=== PATIENT | female | born 1940 | race African-American/Black ===

== ENCOUNTER 2019-01-07 18:16 | Inpatient (IN) | payer MEDICARE, OTHER ==
[~2019-01-07] VITALS: Ht 172.7 cm; Wt 111.1 kg
[2019-01-07] MEDS ORDERED: TRIBENZOR 40-11 EAC1 ORAL (18:24)
[2019-01-07] MEDS ORDERED: BYSTOLIC20 MG ORAL (18:24)
[2019-01-07] MEDS ORDERED: ZETIA10 MG ORAL (18:24)
[2019-01-07] MEDS ORDERED: METFORMIN ER G500 MG PO (18:24)
[2019-01-07] MEDS ORDERED: ALLOPURINOL300 M1 ORAL (18:24)
[2019-01-07] MEDS ORDERED: LEVOTHYROXINE175 MCG ORAL (18:24)
[2019-01-07] MEDS ORDERED: FUROSEMIDE40 MG/5 ML ORAL (18:24)
--- NOTE | 2019-01-07 18:25 | NUR ---
ED Nurse Note: patient was brought by ambulance, AAO x 3, per patient's daughter she was not answering phone for 3 days, daughter called 911 and they broke down her door. Patient was laying down on the floor for 2 days. per patient she was "so sleepy to get up from the floor" No pain, no lacerations, no bruising noted. skin is dry intact. VSS at this time. will continue to monitor.
[2019-01-07 18:27] VITALS: BP 145/86
[2019-01-07 18:50] LABS: APPEARANCE,URINE CLOUDY; BILIRUBIN, URINE NEGATIVE (NEGATIVE); GLUCOSE, URINE (UA) NEGATIVE (NEGATIVE); KETONES,URINE 2+ (NEGATIVE); LEUKOCYTE ESTERASE ,URINE 3+ (NEGATIVE); NITRITE,URINE POSITIVE (NEGATIVE); PH,URINE 5 (4.5-8.0); PROTEIN,URINE 2+ (NEGATIVE); UROBILINOGEN,URINE 4 MG/DL (0.0-1.0)
[2019-01-07 18:50] LABS: HEMATOCRIT 43.6 % (37.0-47.0); HEMOGLOBIN 14.7 G/DL (12.0-16.0); LYMPHOCYTES % (AUTO) 13.3 % (20.0-45.0); MEAN CORPUSCULAR VOLUME 92 FL (80-99); MONOCYTES % (AUTO) 8.4 % (1.0-10.0); NEUTROPHILS % (AUTO) 77.2 % (45.0-75.0); PLATELET COUNT 202 K/UL (150-450); RED BLOOD COUNT 4.74 M/UL (4.20-5.40); RED CELL DISTRIBUTION WIDTH 12.5 % (11.6-14.8); WHITE BLOOD COUNT 7.8 K/UL (4.8-10.8)
--- NOTE | 2019-01-07 18:52 | Emergency Room Report ---
History of Present Illness General Chief Complaint: Multiple Trauma/Fall Source: Patient, Family Member, EMS (Deangelo Julien MD) Present Illness HPI The patient wasn't answering her phone. Family member went today. She was unable to ambulate. She states this is happened one time before. She denies any pain. Paramedics were summoned. She had a tachycardia. Accu-Chek was 260. MLAPPS was negative. The patient was seen by her doctor on Tuesday without any identified medical problems. History of hypertension and diabetes. She's also taking a blood thinner. H/O hypothyroidism She has chronic edema of LE bilaterally. Denies pain in legs. 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[employer] Reviewed Nursing Documentation: PMH: Agreed; PSxH: Agreed (Deangelo Julien MD) Nursing Documentation-PMH Hx Cardiac Problems: Yes - HYPOTHYROIDISM Hx Hypertension: Yes (Deangelo Julien MD) Review of Systems All Other Systems: negative except mentioned in HPI (Deangelo Julien MD) Physical Exam Vital Signs Date Time Temp Pulse Resp B/P (MAP) Pulse Ox O2 Delivery O2 Flow Rate FiO2 01/07/19 18:12 126 20 135/90 93 Room Air 01/07/19 18:27 98.0 Sp02 EP Interpretation: reviewed, normal General Appearance: well appearing, no apparent distress, GCS 15 Head: normocephalic, atraumatic Eyes: bilateral eye normal inspection, bilateral eye PERRL ENT: moist mucus membranes - plates Neck: supple Respiratory: lungs clear, normal breath sounds Cardiovascular #1: tachycardia, edema - 2+ pitting bilat Cardiovascular #2: 2+ radial (R) Gastrointestinal: normal inspection, normal bowel sounds, non tender, no mass, non-distended Genitourinary: other - UTI smell Musculoskeletal: back normal, normal range of motion, pelvis stable Neurologic: alert, oriented x3, DTRs symmetric, sensory intact, motor weakness - diffuse, slight extinction R hand and drift, minimal facial assymmetry with R weakness Psychiatric: mood/affect normal Skin: warm/dry (Deangelo Julien MD) Medical Decision Making Diagnostic Impression: Primary Impression: Fall Qualified Codes: W19.XXXA - Unspecified fall, initial encounter Additional Impressions: UTI (urinary tract infection) Qualified Codes: N39.0 - Urinary tract infection, site not specified Subacute left parietal lobe infarct Rhabdomyolysis Qualified Codes: M62.82 - Rhabdomyolysis ER Course Patient presents with denies weakness and being down for 3 days. [place] includes acute myocardial infarction, UTI, sepsis, rhabdomyolysis, acute renal failure, hypothyroidism amongst others. Evaluation will be with EKG, CT the head, chest x-ray and labs including blood cultures and lactate. The patient will receive IV hydration and may need antibiotics. The patient is placed on a hall monitor. EKG without injury. CXR atelectasis L base. CT possible subacute infarct L parietal lobe. UA with pyuria. Elevated CK. Antibiotics begun for UTI. Neurologic exam unchanged. Probable CVA occurred 3 days ago. No tPA indicated. Discussed with Dr. Ventura, however awaiting insurance confirmation. Admit telemetry. Signed out to Dr. Murphy. Laboratory Tests Test 01/07/19 18:25 01/07/19 18:35 White Blood Count 7.8 K/UL (4.8-10.8) Red Blood Count 4.74 M/UL (4.20-5.40) Hemoglobin 14.7 G/DL (12.0-16.0) Hematocrit 43.6 % (37.0-47.0) Mean Corpuscular Volume 92 FL (80-99) Mean Corpuscular Hemoglobin 31.0 PG (27.0-31.0) Mean Corpuscular Hemoglobin Concent 33.7 G/DL (32.0-36.0) Red Cell Distribution Width 12.5 % (11.6-14.8) Platelet Count 202 K/UL (150-450) Mean Platelet Volume 7.1 FL (6.5-10.1) Neutrophils (%) (Auto) 77.2 % (45.0-75.0) H Lymphocytes (%) (Auto) 13.3 % (20.0-45.0) L Monocytes (%) (Auto) 8.4 % (1.0-10.0) Eosinophils (%) (Auto) 0.0 % (0.0-3.0) Basophils (%) (Auto) 1.0 % (0.0-2.0) Prothrombin Time 11.5 SEC (9.30-11.50) Prothrombin Time INR 1.1 (0.9-1.1) PTT 30 SEC (23-33) Sodium Level 137 MMOL/L (136-145) Potassium Level 3.3 MMOL/L (3.5-5.1) L Chloride Level 98 MMOL/L (98-107) Carbon Dioxide Level 24 MMOL/L (21-32) Anion Gap 15 mmol/L (5-15) Blood Urea Nitrogen 15 mg/dL (7-18) Creatinine 1.0 MG/DL (0.55-1.30) Estimate Glomerular Filtration Rate mL/min (>60) Glucose Level 235 MG/DL (74-106) H Lactic Acid Level 1.80 mmol/L (0.4-2.0) Calcium Level 10.0 MG/DL (8.5-10.1) Total Bilirubin 0.8 MG/DL (0.2-1.0) Aspartate Amino Transferase (AST) 66 U/L (15-37) H Alanine Aminotransferase (ALT) 26 U/L (12-78) Alkaline Phosphatase 67 U/L (46-116) Total Creatine Kinase 2435 U/L (26-308) H Troponin I 0.000 ng/mL (0.000-0.056) Pro-B-Type Natriuretic Peptide 66 pg/mL (0-125) Total Protein 7.9 G/DL (6.4-8.2) Albumin 3.2 G/DL (3.4-5.0) L Globulin 4.7 g/dL Albumin/Globulin Ratio 0.7 (1.0-2.7) L Thyroid Stimulating Hormone (TSH) 5.378 uiU/mL (0.358-3.740) Urine Color Yellow Urine Appearance Cloudy Urine pH 5 (4.5-8.0) Urine Specific [place] 1.020 (1.005-1.035) Urine Protein 2+ (NEGATIVE) H Urine Glucose (UA) Negative (NEGATIVE) Urine Ketones 2+ (NEGATIVE) H Urine Blood 4+ (NEGATIVE) H Urine Nitrite Positive (NEGATIVE) H Urine Bilirubin Negative (NEGATIVE) Urine Urobilinogen 4 MG/DL (0.0-1.0) H Urine Leukocyte Esterase 3+ (NEGATIVE) H Urine RBC 0-2 /HPF (0 - 2) Urine WBC Tntc /HPF (0 - 2) H Urine Squamous Epithelial Cells Few /LPF (NONE/OCC) Urine Bacteria Many /HPF (NONE) H Urine Opiates Screen Negative (NEGATIVE) Urine Barbiturates Screen Negative (NEGATIVE) Phencyclidine (PCP) Screen Negative (NEGATIVE) Urine Amphetamines Screen Negative (NEGATIVE) Urine Benzodiazepines Screen Negative (NEGATIVE) Urine Cocaine Screen Negative (NEGATIVE) Urine Marijuana (THC) Screen Negative (NEGATIVE) (Deangelo Julien MD) ER Course Patient was admitted to Dr. Ventura by Dr. Julien. Patient has [facility]. This patient hospitalists is Dr. Leroy. I spoke with Dr. Aniceto singh and will switch the admission to his service. Dr. Ventura will be digital media sales consultant. (Handy Murphy MD) EKG Diagnostic Results Rate: tachycardiac Rhythm: NSR ST Segments: no acute changes (Deangelo Julien MD) Rhythm Strip Diag. Results EP Interpretation: yes Rhythm: no PVC's, no ectopy, other - Sinus tachycardia (Deangelo Julien MD) Chest X-Ray Diagnostic Results Chest X-Ray Diagnostic Results : Chest X-Ray Ordered: Yes # of Views/Limited/Complete: 1 View Indication: Other EP Interpretation: Yes Interpretation: no effusion, no pneumothorax, other Impression: Other Electronically Signed by: Electronically signed by Deangelo Julien MD (Deangelo Julien MD) CT/MRI/US Diagnostic Results CT/MRI/US Diagnostic Results : Imaging Test Ordered: head Impression possible subacute L parietal lobe infarct (Note final reading does not mention this.) (Deangelo Julien MD) Last Vital Signs Date Time Temp Pulse Resp B/P (MAP) Pulse Ox O2 Delivery O2 Flow Rate FiO2 01/08/19 00:20 98.0 84 15 125/86 99 Room Air Status: improved (Deangelo Julien MD) Disposition: ADMITTED INPATIENT Condition: Serious Deangelo Julien MD Jan 07, 2019 18:52 Handy Murphy MD Jan 07, 2019 23:41
[2019-01-07 18:53] LABS: COLOR,URINE YELLOW
[2019-01-07 18:59] LABS: INR 1.1 (0.9-1.1)
[2019-01-07 19:01] LABS: ANION GAP 15 mmol/L (5-15); BLOOD UREA NITROGEN 15 mg/dL (7-18); CARBON DIOXIDE 24 MMOL/L (21-32); CHLORIDE 98 MMOL/L (98-107); POTASSIUM 3.3 MMOL/L (3.5-5.1); SODIUM 137 MMOL/L (136-145)
[2019-01-07 19:14] VITALS: BP 138/87
[2019-01-07 19:20] LABS: ALANINE AMINOTRANSFERASE 26 U/L (12-78); ALBUMIN 3.2 G/DL (3.4-5.0); ALBUMIN/GLOBULIN RATIO 0.7 (1.0-2.7); ALKALINE PHOSPHATASE 67 U/L (46-116); ASPARTATE AMINO TRANSFERASE 66 U/L (15-37); BILIRUBIN,TOTAL 0.8 MG/DL (0.2-1.0); CREATINE KINASE 2435 U/L (26-308)
[2019-01-07] MEDS ORDERED: Piperacillin/Tazobactam 3.375 GM in NS 110 ML IVPB ONE (20:00)
[2019-01-07 21:13] VITALS: BP 134/86
--- NOTE | 2019-01-07 22:02 | NUR ---
Face sheet, EKG, CT and US reports and clinicals faxed to [facility] ( Anh) at [phone] as requested. Will wait for [facility] to review and call us back. aware.
--- NOTE | 2019-01-07 22:15 | History and Physical Report ---
DATE OF ADMISSION: 01/07/2019 REASON FOR ADMISSION: 1. Urinary tract infection. 2. Dehydration. 3. Rhabdomyolysis. 4. Being found down. HISTORY OF PRESENT ILLNESS: The patient is a pleasant 78-year-old female with well known hypertension and diabetes mellitus, who had not been answering her phone for approximately two days. Family members went over and called the paramedics. She was found to be hyperglycemic. Per the patient's recall, she says she was not feeling well and had not eating for a few days approximately two in nature and thinks she may have passed out or not fell well to overdose two days when she was woken by the paramedics and as such was brought to the emergency room or discover she did have hyperglycemia and the underlying urinary tract infection with an elevated CPK. ALLERGIES: No known drug allergies. PAST MEDICAL HISTORY: 1. Morbid obesity. 2. Diabetes mellitus. 3. Hypertension. 4. Hypothyroidism. 5. Hyperlipidemia. SOCIAL HISTORY: No tobacco, alcohol, or illicit drug use. PAST SURGICAL HISTORY: None. REVIEW OF SYSTEMS: NEUROLOGICAL: The patient feels tired, weak, and fatigued with a possible presyncopal episode. CARDIOVASCULAR: No chest pain, palpitations, or angina. PULMONARY: No difficulty breathing, productive cough, or sputum. GASTROINTESTINAL: No change in urine or bowel habits. No nausea, vomiting, or diarrhea. ENDOCRINOLOGY: No night sweats, fevers, or chills. LABORATORY DATA: Dated 01/04/2019 - sodium 137, potassium 3.3, and glucose 235. Lactic acid 1.8. CPK 2435. Troponin 0. TSH 5.3. Toxicology screen negative. Positive urine for many bacteria. White cell count 7.8, hemoglobin 14.7, and platelet count 202,000. PHYSICAL EXAMINATION: VITAL SIGNS: Blood pressure 138/87, pulse oximetry 98 on room air, respiratory rate 16, pulse 90, and temperature 98.0. GENERAL: The patient is awake and arousable. Answering questions coherently. Alert all four spheres. HEENT: Extraocular muscles intact. No lymphadenopathy. Oropharyngeal is clear and dry. CARDIOVASCULAR: S1 and S2. No rubs or gallops. PULMONARY: Clear to auscultation bilaterally. No rales, rhonchi or wheezes. ABDOMEN: Nondistended, nontender, and obese. EXTREMITIES: No edema noted. Fair pedal pulses. ASSESSMENT AND PLAN: 1. Rhabdomyolysis secondary to prolonged immobilization on floor with a CPK level approximately 2500. The patient will be aggressively hydrated with normal saline 125 mL/hour have been ordered along with correction of underlying hypokalemia. We will recheck CPK level in the morning. 2. Hypokalemia. The patient will have hypokalemia replaced with 40 mEq p.o. currently 3.3. 3. Sepsis secondary to urinary tract infection. The patient was given Levaquin and Zosyn in the emergency room. We will continue Rocephin on a daily basis. 4. Possible presyncopal to syncopal episode due to hyperglycemia, poorly controlled diabetes. The patient will be started on insulin sliding scale, metformin, and Accu-Cheks with low carbohydrate diet. She will also be aggressively hydrated. The patient is not in diabetic ketoacidosis. 5. Hypertension. Continue home medications. 6. Deep venous thrombosis prophylaxis with Lovenox subcutaneous. 7. Hypothyroidism with elevated TSH. Continue levothyroxine. Errol Mullen MD DR: LESLIE JOB#: [id number] CC:
[2019-01-07 23:27] VITALS: BP 129/89
--- NOTE | 2019-01-07 23:42 | NUR ---
contacted, accepted patient.
--- NOTE | 2019-01-07 23:46 | NUR ---
Spoke with Anh at [facility] and made aware that admitted patient already.
--- NOTE | 2019-01-07 23:48 | NUR ---
patient daughter (vincent) called she was made aware that her mother is being admited.
--- NOTE | 2019-01-08 00:21 | NUR ---
ED Nurse Note: Pt report given to Kelsey RAO, pt vital signs, condition, and status have been reported. pt is stable for transfer.
[2019-01-08 00:50] VITALS: BP 112/64
--- NOTE | 2019-01-08 00:51 | NUR ---
NURSE NOTES: Received pt from MAIRA Foreman. Pt awake, alert, and talkative. Skin intact. Indentation noted in the sacral area but intact. Lung sounds clear. Heart and bowel sounds present. Pt has trace edema in lower extremities. Bed in lowest position. Call light within reach. No signs or symptoms of CVA. Pt stated that she was on the floor for two days. Fall precautions in place. Will continue to monitor.
[2019-01-08 04:00] VITALS: BP 115/67
[2019-01-08] MEDS: NovoLOG Insulin Flexpen SUBQ SCH ×4 (05:58→21:00)
[2019-01-08] MEDS: metFORMIN 500mg tab ORAL SCH ×3 (06:03→17:27)
--- NOTE | 2019-01-08 07:20 | NUR ---
NURSE NOTES: Received patient in bed. A/O x4, eating her breakfast comfortably. IV site is intact, patent, infusing IVF as ordered. VSS, ST 105 noted on the monitor. Call light within reach. Safety measures applied.
[2019-01-08 07:58] LABS: BASOPHILS % (AUTO) 0.7 % (0.0-2.0); EOSINOPHILS % (AUTO) 0.1 % (0.0-3.0); HEMATOCRIT 38.2 % (37.0-47.0); HEMOGLOBIN 12.7 G/DL (12.0-16.0); LYMPHOCYTES % (AUTO) 20.5 % (20.0-45.0); MEAN CORPUSCULAR VOLUME 94 FL (80-99); MONOCYTES % (AUTO) 12.4 % (1.0-10.0); NEUTROPHILS % (AUTO) 66.3 % (45.0-75.0); PLATELET COUNT 182 K/UL (150-450); RED BLOOD COUNT 4.08 M/UL (4.20-5.40); RED CELL DISTRIBUTION WIDTH 12.8 % (11.6-14.8); WHITE BLOOD COUNT 6.9 K/UL (4.8-10.8)
[2019-01-08 08:00] VITALS: BP 119/69
--- NOTE | 2019-01-08 08:05 | NUR ---
HAND-OFF: Report given to MAIRA Guerrier.
[2019-01-08 08:09] LABS: ANION GAP 12 mmol/L (5-15); BLOOD UREA NITROGEN 14 mg/dL (7-18); CALCIUM 9.2 MG/DL (8.5-10.1); CARBON DIOXIDE 25 MMOL/L (21-32); CHLORIDE 103 MMOL/L (98-107); CREATININE 0.9 MG/DL (0.55-1.30); POTASSIUM 3.7 MMOL/L (3.5-5.1); SODIUM 140 MMOL/L (136-145)
--- NOTE | 2019-01-08 08:30 | NUR ---
NURSE NOTES: Patient is a/ox4, wished her daughter Winsome Smith ([phone]) to be updated, gave updates to her daughter.
[2019-01-08 08:32] LABS: CREATINE KINASE 1708 U/L (26-308)
--- NOTE | 2019-01-08 08:55 | Nephrology Progress Note ---
Assessment/Plan Assessment/Plan A/P 1) Rhabdomy- CPK improving down to 1700 - continue IVFs - DC meenu 2) Syncope/Prolonged immobilization - ?? dehydration and hyperglycemia - continue IVfs and ISS - per PCP 3) UTI- on Abx 4) HTN- stable at goal 5) Hypothyroid- on synthroid Subjective Date patient seen: Jan 08, 2019 Time patient seen: 08:52 ROS Limited/Unobtainable: No Allergies: Coded Allergies: No Known Allergies (Unverified , 01/07/19) Subjective Patient more awake and alert today Objective Last 24 Hour Vital Signs Date Time Temp Pulse Resp B/P (MAP) Pulse Ox O2 Delivery O2 Flow Rate FiO2 01/08/19 08:00 98.1 105 18 119/69 (86) 95 01/08/19 04:00 99.0 108 18 115/67 (83) 95 01/08/19 04:00 107 01/08/19 00:52 Room Air 01/08/19 00:50 97.2 116 18 112/64 (80) 97 01/08/19 00:20 98.0 84 15 125/86 99 Room Air 01/07/19 23:27 98.0 87 15 129/89 99 Room Air 01/07/19 21:13 98.0 91 16 134/86 99 Room Air 01/07/19 19:14 98.0 90 16 138/87 98 Room Air 01/07/19 18:27 115 22 Room Air 01/07/19 18:27 98.0 115 22 145/86 98 Room Air 01/07/19 18:12 126 20 135/90 93 Room Air Intake and Output 01/07/19 01/08/19 19:00 07:00 Output Total 400 ml Balance -400 ml Output Urine Total 400 ml Laboratory Tests 01/07/19 18:25: White Blood Count 7.8, Red Blood Count 4.74, Hemoglobin 14.7, Hematocrit 43.6, Mean Corpuscular Volume 92, Mean Corpuscular Hemoglobin 31.0, Mean Corpuscular Hemoglobin Concent 33.7, Red Cell Distribution Width 12.5, Platelet Count 202, Mean Platelet Volume 7.1, Neutrophils (%) (Auto) 77.2H, Lymphocytes (%) (Auto) 13.3L, Monocytes (%) (Auto) 8.4, Eosinophils (%) (Auto) 0.0, Basophils (%) (Auto ) 1.0, Prothrombin Time 11.5, Prothromb Time International Ratio 1.1, Activated Partial Thromboplast Time 30, Sodium Level 137, Potassium Level 3.3L, Chloride Level 98, Carbon Dioxide Level 24, Anion Gap 15, Blood Urea Nitrogen 15, Creatinine 1.0, Estimat Glomerular Filtration Rate , Glucose Level 235H, Lactic Acid Level 1.80, Calcium Level 10.0, Total Bilirubin 0.8, Aspartate Amino Transf (AST/SGOT) 66H, Alanine Aminotransferase (ALT/SGPT) 26, Alkaline Phosphatase 67, Total Creatine Kinase 2435H, Troponin I 0.000, Pro-B-Type Natriuretic Peptide 66, Total Protein 7.9, Albumin 3.2L, Globulin 4.7, Albumin/ Globulin Ratio 0.7L, Thyroid Stimulating Hormone (TSH) 5.378H 01/07/19 18:35: Urine Color Yellow, Urine Appearance Cloudy, Urine pH 5, Urine Specific [place] 1.020, Urine Protein 2+H, Urine Glucose (UA) Negative, Urine Ketones 2+H, Urine Blood 4+H, Urine Nitrite PositiveH, Urine Bilirubin Negative, Urine Urobilinogen 4H, Urine Leukocyte Esterase 3+H, Urine RBC 0-2, Urine WBC TntcH, Urine Squamous Epithelial Cells Few, Urine Bacteria ManyH, Urine Opiates Screen Negative, Urine Barbiturates Screen Negative, Phencyclidine (PCP) Screen Negative, Urine Amphetamines Screen Negative, Urine Benzodiazepines Screen Negative, Urine Cocaine Screen Negative, Urine Marijuana (THC) Screen Negative 01/08/19 06:36: White Blood Count 6.9, Red Blood Count 4.08L, Hemoglobin 12.7, Hematocrit 38.2, Mean Corpuscular Volume 94, Mean Corpuscular Hemoglobin 31.2H, Mean Corpuscular Hemoglobin Concent 33.3, Red Cell Distribution Width 12.8, Platelet Count 182, Mean Platelet Volume 7.2, Neutrophils (%) (Auto) 66.3, Lymphocytes (%) (Auto) 20.5, Monocytes (%) (Auto) 12.4H, Eosinophils (%) (Auto) 0.1, Basophils (%) ( Auto) 0.7, Sodium Level 140, Potassium Level 3.7, Chloride Level 103, Carbon Dioxide Level 25, Anion Gap 12, Blood Urea Nitrogen 14, Creatinine 0.9, Estimat Glomerular Filtration Rate , Glucose Level 173H, Calcium Level 9.2, Total Creatine Kinase 1708H, Troponin I 0.000 Height (Feet): 5 Height (Inches): 8.00 Weight (Pounds): 240 General Appearance: no apparent distress, alert EENT: normal ENT inspection Neck: supple Cardiovascular: normal rate, regular rhythm Respiratory/Chest: lungs clear, normal breath sounds Abdomen: non tender, soft Edema: no edema noted Arm (L), no edema noted Arm (R), no edema noted Leg (L), no edema noted Leg (R), no edema noted Pedal (L), no edema noted Pedal (R), no edema noted Generalized Errol Mullen MD Jan 08, 2019 08:55
[2019-01-08] MEDS: Aspirin Baby 81mg ORAL SCH (08:56)
--- NOTE | 2019-01-08 08:56 | NUR ---
CASE MANAGEMENT:REVIEW 78 YR OLD FEMALE BIBA FROM HOME CC: DTR FOUND PATIENT DOWN SI: FALL. CVA. UTI 98.0 126 20 135/90 93% ON RA K-3.3 GLUCOSE+235 TCK+2435 TSH+5.378 IS:1L NS BOLUS IV LEVAQUIN IV ZOSYN CT HEAD BLOOD CX CHEST XRAY : TO TELEMETRY INTERQUAL CRITERIA MET
[2019-01-08] MEDS: Enoxaparin 40mg Inj SUBQ SCH (08:57)
[2019-01-08] MEDS: cefTRIAXone 1gm/D5W 55ml IVPB SCH ×2 (08:59)
--- NOTE | 2019-01-08 09:48 | NUR ---
NURSE NOTES: patient stated that she walks with a walker at home, Informed Dr. Mullen about the benefit of physical therapy for this patient.
--- NOTE | 2019-01-08 09:49 | History & Physical ---
History and Physical History & Physicial HISTORY OF PRESENT ILLNESS: The patient is a pleasant 78-year-old female with a past history hypertension and diabetes mellitus, who had not been answering her phone for two days. Family members went over and called the paramedics. Per the patient's recall, she says she was not feeling well and had not eating for a few days. She feels that she may have passed out or not fell well and was woken by the paramedics and as such was brought to the emergency room. In the ER she was found to have a urinary tract infection with an elevated CPK. ALLERGIES: No known drug allergies. PAST MEDICAL HISTORY: 1. Morbid obesity. 2. Diabetes mellitus. 3. Hypertension. 4. Hypothyroidism. 5. Hyperlipidemia. SOCIAL HISTORY: No tobacco, alcohol, or illicit drug use. PAST SURGICAL HISTORY: None. REVIEW OF SYSTEMS: NEUROLOGICAL: The patient feels tired, weak, and fatigued with a possible presyncopal episode. CARDIOVASCULAR: No chest pain, palpitations, or angina. PULMONARY: No difficulty breathing, productive cough, or sputum. GASTROINTESTINAL: No change in urine or bowel habits. No nausea, vomiting, or diarrhea. ENDOCRINOLOGY: No night sweats, fevers, or chills. LABORATORY DATA: Dated 01/04/2019 - sodium 137, potassium 3.3, and glucose 235. Lactic acid 1.8. CPK 2435. Troponin 0. TSH 5.3. Toxicology screen negative. Positive urine for many bacteria. White cell count 7.8, hemoglobin 14.7, and platelet count 202,000. PHYSICAL EXAMINATION: VITAL SIGNS: Blood pressure 138/87, pulse oximetry 98 on room air, respiratory rate 16, pulse 90, and temperature 98.0. GENERAL: The patient is awake and arousable. Answering questions coherently. Alert all four spheres. HEENT: Extraocular muscles intact. No lymphadenopathy. Oropharyngeal is clear and dry. CARDIOVASCULAR: S1 and S2. No rubs or gallops. PULMONARY: Clear to auscultation bilaterally. No rales, rhonchi or wheezes. ABDOMEN: Nondistended, nontender, and obese. EXTREMITIES: No edema noted. Fair pedal pulses. ASSESSMENT AND PLAN: 1. Rhabdomyolysis secondary to prolonged immobilization on floor with a CPK level approximately 2500. The patient will be aggressively hydrated with normal saline 125 mL/hour have been ordered along with correction of underlying hypokalemia. I will recheck CPK level in the morning. 2. Hypokalemia. The patient will have hypokalemia replaced with 40 mEq p.o. currently 3.3. 3. Sepsis secondary to urinary tract infection. The patient was given Levaquin and Zosyn in the emergency room. I will continue Rocephin on a daily basis. 4. Possible presyncopal to syncopal episode due to hyperglycemia, poorly controlled diabetes. The patient will be started on insulin sliding scale, metformin, and Accu-Cheks with low carbohydrate diet. She will also be aggressively hydrated. The patient is not in diabetic ketoacidosis. 5. Hypertension. Continue home medications. 6. Deep venous thrombosis prophylaxis with Lovenox subcutaneous. 7. Hypothyroidism with elevated TSH. Continue levothyroxine. MD Mariaa Villagran Omar Syed MD Jan 08, 2019 09:49
--- NOTE | 2019-01-08 10:00 | NUR ---
NURSE NOTES: removed corrigan without complication.
--- NOTE | 2019-01-08 10:01 | NUR ---
NURSE NOTES: Received order from Dr. Leroy regarding physical therapy
--- NOTE | 2019-01-08 10:57 | Diagnostic Imaging Report ---
Indication: Headache Technique: Contiguous 5 mm thick transaxial imaging of the head obtained in a Siemens Sensation [address] scanner. Soft tissue and bone windows generated. Automatic Exposure Control was utilized. Total Dose length Product (DLP): [address] Dose Index Volume (CTDIvol): 70.38 mGy Comparison: none Findings: There is mild prominence of the ventricles, basal cisterns, and cerebral sulci consistent with atrophy. Ventricular enlargement is disproportionately worse than degree of atrophy present. Mild, nonspecific, white matter hypoattenuation is noted throughout the brain consistent with chronic small vessel disease. There is no midline shift, edema, acute hemorrhage, mass effect, or abnormal extra-axial fluid collections. Bones and extra osseous soft tissues are unremarkable. Impression: No acute intracranial bleed, mass effect or edema. Disproportionate ventriculomegaly. Consider normal pressure hydrocephalus. Mild atrophy of the brain. Nonspecific white matter hypoattenuation probably due to chronic small vessel disease. The CT scanner at [facility] is accredited by the [place] [employer] and the scans are performed using dose optimization techniques as appropriate to a performed exam including Automatic Exposure control.
--- NOTE | 2019-01-08 11:27 | NUR ---
NURSE NOTES: BAY wise made aware of the physical therapy order
[2019-01-08 12:00] VITALS: BP 115/70
--- NOTE | 2019-01-08 12:01 | Diagnostic Imaging Report ---
Indication: Dyspnea Comparison: None A single view chest radiograph was obtained. Findings: Mild basal atelectasis on the left demonstrated. Left hemidiaphragm is slightly elevated. Heart size is normal. Bones are unremarkable. IMPRESSION: Mild left basal atelectasis
--- NOTE | 2019-01-08 12:06 | NUR ---
NURSE NOTES: Informed Dr. Leroy regarding patient's hallucination.
--- NOTE | 2019-01-08 12:10 | NUR ---
NURSE NOTES: Dr Leroy ordered another urine tox screen.
--- NOTE | 2019-01-08 15:30 | NUR ---
NURSE NOTES: provided patient wash clothes to wash her face. provided bedside commode
[2019-01-08 16:04] VITALS: BP 120/77
--- NOTE | 2019-01-08 16:51 | Cardiology Report ---
APPROVED REPORT EKG Measurement Heart [id number] Sinus tachycardia with premature ventricular complexes Possible Left atrial enlargement Left axis deviation Cannot rule out Anterior infarct, age undetermined Abnormal ECG
--- NOTE | 2019-01-08 18:20 | NUR ---
NURSE NOTES: left msg to Dr. Leroy regarding: bladder scan done - 175ml patient does not feel the urge to void patient is hallucinating seeing some one in the room who she claims it's her sister and she is talking to that hallucination.
--- NOTE | 2019-01-08 19:19 | NUR ---
NURSE NOTES: Received pt. and report from MAIRA Guerrier. Observe pt. resting in bed with both eyes open. Pt. is A/Ox3. watch dial maker is in placed, IV site intact, asymptomatic, and patent; currently running NS @ 125cc/hr. Bed is in the lowest position and locked. Call light within reach. No acute distress noted at this time. Will continue plan of care.
--- NOTE | 2019-01-08 19:28 | NUR ---
HAND-OFF: Report given to Luz Bhandari
[2019-01-08 20:00] VITALS: BP 123/75
--- NOTE | 2019-01-08 21:06 | NUR ---
NURSE NOTES: Pt. refused insulin. Blood glucose (218). Educated pt. on the risks of refusing insulin. Pt. understood and continued to refuse.
[2019-01-09] VITALS: BP 122/68
[2019-01-09 04:00] VITALS: BP 127/75
[2019-01-09] MEDS: metFORMIN 500mg tab ORAL SCH ×3 (05:57→16:45)
[2019-01-09] MEDS: NovoLOG Insulin Flexpen SUBQ SCH ×4 (06:00→21:00)
--- NOTE | 2019-01-09 06:00 | NUR ---
NURSE NOTES: Pt. refused insulin. Blood glucose (198). Educated pt. on the risks of refusing insulin with high blood glucose. Pt. understood and continued to refuse.
--- NOTE | 2019-01-09 07:40 | NUR ---
NURSE NOTES: Received potassium level (6.7) from the lab, endorsed by Alison. Dr. Vides is aware of previous potassium level (7.0). Potassium level is trending down. Endorsed to AMIRA Schaefer.
[2019-01-09 08:00] VITALS: BP 125/75
--- NOTE | 2019-01-09 08:00 | NUR ---
NURSE NOTES: Received patient from MAIRA Steven in bed resting. Daughter at bedside. Denies any pain, no s/s of acute distress noted. Encouraged patient to verbalize feelings and to use the call light for help, patient stated understanding. Bed is in lowest position, brakes engaged for safety. Call light is within reach. Will continue with the plan of care.
--- NOTE | 2019-01-09 08:32 | NUR ---
HAND-OFF: Report given to MAIRA Schaefer.
[2019-01-09 09:07] LABS: ANION GAP 10 mmol/L (5-15); BLOOD UREA NITROGEN 15 mg/dL (7-18); CALCIUM 8.9 MG/DL (8.5-10.1); CARBON DIOXIDE 23 MMOL/L (21-32); CHLORIDE 108 MMOL/L (98-107); CREATINE KINASE 853 U/L (26-308); POTASSIUM 3.7 MMOL/L (3.5-5.1); SODIUM 141 MMOL/L (136-145)
[2019-01-09] MEDS: Aspirin Baby 81mg ORAL SCH (09:14)
[2019-01-09] MEDS: cefTRIAXone 1gm/D5W 55ml IVPB SCH ×2 (09:14)
[2019-01-09] MEDS: Enoxaparin 40mg Inj SUBQ SCH (09:15)
--- NOTE | 2019-01-09 09:24 | Pulmonology Progress Note ---
Assessment/Plan Assessment/Plan ASSESSMENT AND PLAN: 1. Rhabdomyolysis secondary to prolonged immobilization Continue with normal saline 125 mL/hour 2. Hypokalemia. Replaced 3. Sepsis secondary to urinary tract infection. I will continue Rocephin on a daily basis. 4. Possible presyncopal to syncopal episode due to hyperglycemia, poorly controlled diabetes. The patient will be started on insulin sliding scale, metformin, and Accu-Cheks with low carbohydrate diet. 5. Hypertension. Continue home medications. 6. Deep venous thrombosis prophylaxis with Lovenox subcutaneous. 7. Hypothyroidism with elevated TSH. Continue levothyroxine. 8. AMS; suspect toxic metabolic; will check MRI brain 9. Rule out urinary retention. Subjective Interval Events: Confused yesterday; lethargic today Constitutional: Reports: no symptoms HEENT: Repors: no symptoms Respiratory: Reports: no symptoms Cardiovascular: Reports: no symptoms Gastrointestinal/Abdominal: Reports: no symptoms Genitourinary: Reports: no symptoms Allergies: Coded Allergies: No Known Allergies (Unverified , 01/07/19) Objective Last 24 Hour Vital Signs Date Time Temp Pulse Resp B/P (MAP) Pulse Ox O2 Delivery O2 Flow Rate FiO2 01/09/19 04:00 72 01/09/19 04:00 97.5 72 17 127/75 (92) 96 01/09/19 00:00 91 01/09/19 00:00 97.3 95 18 122/68 (86) 95 01/08/19 21:00 Room Air 01/08/19 20:00 98 01/08/19 20:00 98.7 91 16 123/75 (91) 95 01/08/19 18:24 97.8 01/08/19 16:04 96.8 87 18 120/77 (91) 95 01/08/19 16:00 93 01/08/19 12:00 97.9 112 18 115/70 (85) 95 01/08/19 12:00 115 01/08/19 09:53 Room Air Intake and Output 01/08/19 01/09/19 19:00 07:00 Intake Total 865 ml 1500 ml Balance 865 ml 1500 ml Intake Oral 740 ml IV Total 125 ml 1500 ml # Voids 2 General Appearance: no acute distress HEENT: normocephalic Respiratory/Chest: chest wall non-tender, lungs clear Cardiovascular: normal peripheral pulses, normal rate Abdomen: normal bowel sounds, soft, non tender Microbiology Date/Time Source Procedure Growth Status 01/07/19 18:40 Blood Blood Culture - Preliminary NO GROWTH AFTER 24 HOURS Resulted 01/07/19 18:25 Blood Blood Culture - Preliminary NO GROWTH AFTER 24 HOURS Resulted 01/07/19 18:35 Urine,Clean Catch Urine Culture - Preliminary Gram Negative Bacillus 1 Resulted Laboratory Tests 01/08/19 12:25: Urine Opiates Screen Negative, Urine Barbiturates Screen Negative, Phencyclidine (PCP) Screen Negative, Urine Amphetamines Screen Negative, Urine Benzodiazepines Screen Negative, Urine Cocaine Screen Negative, Urine Marijuana (THC) Screen Negative 01/09/19 07:30: Sodium Level 141, Potassium Level 3.7, Chloride Level 108H, Carbon Dioxide Level 23, Anion Gap 10, Blood Urea Nitrogen 15, Creatinine 1.0, Estimat Glomerular Filtration Rate , Glucose Level 197H, Calcium Level 8.9, Total Creatine Kinase 853H Current Medications Medications (Trade) Dose Ordered Sig/Selena Route PRN Reason Start Time Stop Time Status Last Admin Dose Admin Acetaminophen (Tylenol) 650 mg Q4H PRN ORAL Mild Pain (Pain Scale 1-3) 01/07/19 20:45 02/06/19 20:44 Allopurinol (Allopurinol) 300 mg DAILY ORAL 01/09/19 09:00 02/08/19 08:59 01/09/19 09:14 Aspirin (ASA) 81 mg DAILY ORAL 01/08/19 09:00 02/07/19 08:59 01/09/19 09:14 Ceftriaxone Sodium 1 gm/ Dextrose 55 ml @ 110 mls/hr DAILY IVPB 01/08/19 09:00 01/15/19 08:59 01/09/19 09:14 Dextrose (Dextrose 50%) 25 ml Q30M PRN IV Hypoglycemia 01/07/19 21:00 02/06/19 20:59 Dextrose (Dextrose 50%) 50 ml Q30M PRN IV Hypoglycemia 01/07/19 21:00 02/06/19 20:59 Diphenhydramine HCl (Benadryl) 25 mg Q6H PRN ORAL Itching/Pruritis 01/07/19 20:45 02/06/19 20:44 Enoxaparin Sodium (Lovenox) 40 mg DAILY SUBQ 01/08/19 09:00 02/07/19 08:59 01/09/19 09:15 EZETIMIBE (Zetia) 10 mg BEDTIME ORAL 01/08/19 00:00 02/07/19 00:00 01/08/19 21:03 Famotidine (Pepcid) 40 mg DAILY ORAL 01/08/19 09:00 02/07/19 08:59 01/09/19 09:14 Insulin Aspart (NovoLOG) BEFORE MEALS AND HS SUBQ 01/08/19 06:30 02/07/19 06:29 Levothyroxine Sodium (Synthroid) 150 mcg DAILY@0630 ORAL 01/08/19 06:30 02/07/19 06:29 01/09/19 05:57 Metformin HCl (Glucophage) 500 mg TIAC ORAL 01/08/19 06:30 02/07/19 06:29 01/09/19 05:57 Nebivolol (Bystolic) 10 mg DAILY ORAL 01/08/19 09:00 02/07/19 08:59 01/09/19 09:13 Ondansetron HCl (Zofran) 4 mg Q6H PRN IVP Nausea & Vomiting 01/07/19 20:45 02/06/19 20:44 Sodium Chloride 1,000 ml @ 125 mls/hr Q8H IV 01/07/19 22:00 02/06/19 21:59 01/09/19 05:57 Doron Leroy MD Jan 09, 2019 09:23
--- NOTE | 2019-01-09 09:30 | NUR ---
NURSE NOTES: Dr. Leroy ordered bladder scan, result 200cc.
--- NOTE | 2019-01-09 10:03 | Nephrology Progress Note ---
Assessment/Plan Assessment/Plan A/P 1) Rhabdomy- CPK improving down to 1700---->853 - continue IVFs for one more day 2) Syncope/Prolonged immobilization - ?? dehydration and hyperglycemia. All improved - per PCP 3) UTI- switch Abx to po Cipro 4) HTN- stable at goal 5) Hypothyroid- on synthroid 6) DM- per PCP Subjective Date patient seen: Jan 09, 2019 Time patient seen: 10:01 ROS Limited/Unobtainable: No Allergies: Coded Allergies: No Known Allergies (Unverified , 01/07/19) All Systems: reviewed and negative except above Subjective Patient more awake and alert today, but little more confused Objective Last 24 Hour Vital Signs Date Time Temp Pulse Resp B/P (MAP) Pulse Ox O2 Delivery O2 Flow Rate FiO2 01/09/19 04:00 72 01/09/19 04:00 97.5 72 17 127/75 (92) 96 01/09/19 00:00 91 01/09/19 00:00 97.3 95 18 122/68 (86) 95 01/08/19 21:00 Room Air 01/08/19 20:00 98 01/08/19 20:00 98.7 91 16 123/75 (91) 95 01/08/19 18:24 97.8 01/08/19 16:04 96.8 87 18 120/77 (91) 95 01/08/19 16:00 93 01/08/19 12:00 97.9 112 18 115/70 (85) 95 01/08/19 12:00 115 Intake and Output 01/08/19 01/09/19 19:00 07:00 Intake Total 865 ml 1500 ml Balance 865 ml 1500 ml Intake Oral 740 ml IV Total 125 ml 1500 ml # Voids 2 Laboratory Tests 01/08/19 12:25: Urine Opiates Screen Negative, Urine Barbiturates Screen Negative, Phencyclidine (PCP) Screen Negative, Urine Amphetamines Screen Negative, Urine Benzodiazepines Screen Negative, Urine Cocaine Screen Negative, Urine Marijuana (THC) Screen Negative 01/09/19 07:30: Sodium Level 141, Potassium Level 3.7, Chloride Level 108H, Carbon Dioxide Level 23, Anion Gap 10, Blood Urea Nitrogen 15, Creatinine 1.0, Estimat Glomerular Filtration Rate , Glucose Level 197H, Calcium Level 8.9, Total Creatine Kinase 853H Height (Feet): 5 Height (Inches): 8.00 Weight (Pounds): 240 General Appearance: no apparent distress, confused EENT: normal ENT inspection Neck: normal alignment, supple Cardiovascular: normal rate, regular rhythm Respiratory/Chest: lungs clear, normal breath sounds Abdomen: non tender, soft Edema: no edema noted Arm (L), no edema noted Arm (R), no edema noted Leg (L), no edema noted Leg (R), no edema noted Pedal (L), no edema noted Pedal (R), no edema noted Generalized Errol Mullen MD Jan 09, 2019 10:03
--- NOTE | 2019-01-09 10:29 | NUR ---
CASE MANAGEMENT:REVIEW 01/09/19 SI: RHABDOMYOLYSIS. SEPSIS. UTI. AMS 97.5 72 17 127/75 96% ON RA TCK+853 IS: CIPRO PO Q12 LOVENOX SQ QD ASA PO QD BYSTOLIC PO QD SYNTHROID PO QD ZETIA PO QHS IVF@125/HR : TELEMETRY STATUS DCP: FROM HOME PLAN: HALLUCINATING ~ MRI FOR TODAY
--- NOTE | 2019-01-09 11:51 | NUR ---
MRI BRAIN COMPLETED.
--- NOTE | 2019-01-09 11:53 | NUR ---
P.T Note: P.T evaluation completed and treatment initiated. Please refer to P.T evaluation for current functional status. Pt is alert , O x 4 , pleasant and cooperative. No c/o pain. Daughter present during P.T evaluation. Pt presented generalized weakness and decreased activity tolerance affecting her functional mobility independence and safety. MIN. A X 1 and extended needed for bed mobility , transfers and gait/ambulation activities using the FWW. Skilled P.T service is warranted to improve her strength, balance and endurance to increase functional mobility independence and safety during stay. Pt will benefit from either SNF for short term rehab or home with family assist and home P.T. DME to include FWW. Thank for this referral.
[2019-01-09 12:00] VITALS: BP 115/59
--- NOTE | 2019-01-09 12:01 | NUR ---
*-* INSURANCE *-* ALL CLINICALS AND REVIEWS FAXED TO: [employer] F:[phone]
--- NOTE | 2019-01-09 14:04 | Diagnostic Imaging Report ---
Indication: Altered level of consciousness, lethargic Technique: sagittal T1 fast spin echo, axial T1 FLAIR, axial T2 FLAIR, axial T2 FS PROPELLER, axial T2* GRE, axial diffusion weighted images. ADC and exponential ADC maps generated Comparison: Reference made to brain CT dated 01/07/2019 Findings: No abnormal areas of restricted diffusion to suggest acute infarction. No acute hemorrhage or edema. No mass effect nor midline shift. There is age-related enlargement of the ventricles and extra axial CSF spaces. Small old lacunar infarcts are seen in the bilateral addison radiata. Visualized orbits and sinuses are unremarkable. Impression: Chronic and age-related changes, as described Negative for acute intracranial bleed, mass effect or infarct
[2019-01-09 16:00] VITALS: BP 122/66
--- NOTE | 2019-01-09 16:30 | NUR ---
NURSE NOTES: Patient refused insulin, notified MD. Patient is taking metformin. Tolerated well, will continue to monitor.
--- NOTE | 2019-01-09 19:50 | NUR ---
NURSE NOTES: Received report from Sarah Gastelum RN. Pt is resting in the bed w/o respiratory distress in RA. Pt refused to have Insulin at this time. SR in the monitor. IV site is asymptomatic. Bed alarm on, breaks are engaged. Call light and side table are w/in reach. Purwick is applied and draining. Will follow plans of care.
--- NOTE | 2019-01-09 19:54 | NUR ---
HAND-OFF: Report given to MARIA Drake.Endorsed plan of care.
[2019-01-09 20:00] VITALS: BP 114/60
[2019-01-09] MEDS: Ciprofloxacin 500mg tab ORAL SCH (21:27)
--- NOTE | 2019-01-10 01:17 | NUR ---
NURSE NOTES: Pt refused to check VS at midnight. SR 66 bpm in the monitor. Pt is sleeping w/o distress. Will continue to monitor.
[2019-01-10 04:00] VITALS: BP 113/69
[2019-01-10] MEDS: NovoLOG Insulin Flexpen SUBQ SCH ×4 (06:17→20:39)
[2019-01-10] MEDS: metFORMIN 500mg tab ORAL SCH ×3 (06:19→17:07)
--- NOTE | 2019-01-10 07:41 | NUR ---
HAND-OFF: Report given to Ronan Smith RN.
--- NOTE | 2019-01-10 07:44 | NUR ---
NURSE NOTES: Received patient from MAIRA Drake in bed resting. Denies any pain, no s/s of acute distress noted. Bed is in lowest position, brakes engaged for safety. Call light is within reach. Will continue with the plan of care.
[2019-01-10 08:00] VITALS: BP 126/74
[2019-01-10] MEDS: Aspirin Baby 81mg ORAL SCH (08:03)
[2019-01-10] MEDS: Ciprofloxacin 500mg tab ORAL SCH ×2 (08:05→20:32)
[2019-01-10] MEDS: Enoxaparin 40mg Inj SUBQ SCH (08:06)
[2019-01-10 09:07] LABS: ANION GAP 12 mmol/L (5-15); BLOOD UREA NITROGEN 9 mg/dL (7-18); CALCIUM 9.1 MG/DL (8.5-10.1); CARBON DIOXIDE 22 MMOL/L (21-32); CHLORIDE 110 MMOL/L (98-107); CREATINE KINASE 431 U/L (26-308); CREATININE 0.9 MG/DL (0.55-1.30); POTASSIUM 3.5 MMOL/L (3.5-5.1); SODIUM 144 MMOL/L (136-145)
--- NOTE | 2019-01-10 09:35 | Pulmonology Progress Note ---
Assessment/Plan Assessment/Plan ASSESSMENT AND PLAN: 1. Rhabdomyolysis secondary to prolonged immobilization; CK better; will dc IV fluids 2. Hypokalemia. Replaced 3. Sepsis secondary to urinary tract infection. Now on Cipro for Klebsiella 4. Possible presyncopal to syncopal episode due to hyperglycemia, poorly controlled diabetes. The patient will be continued on insulin sliding scale, metformin, and Accu-Cheks with low carbohydrate diet. 5. Hypertension. Continue home medications. 6. Deep venous thrombosis prophylaxis with Lovenox subcutaneous. 7. Hypothyroidism with elevated TSH. Continue levothyroxine. 8. AMS; suspect toxic metabolic; has normal MRI brain 9. PT/OT eval; will begin DC planning to SNF Subjective Interval Events: Looking and feeling better Constitutional: Reports: no symptoms HEENT: Repors: no symptoms Respiratory: Reports: no symptoms Cardiovascular: Reports: no symptoms Gastrointestinal/Abdominal: Reports: no symptoms Allergies: Coded Allergies: No Known Allergies (Unverified , 01/07/19) Objective Last 24 Hour Vital Signs Date Time Temp Pulse Resp B/P (MAP) Pulse Ox O2 Delivery O2 Flow Rate FiO2 01/10/19 04:00 98.2 75 18 113/69 (84) 98 01/10/19 03:25 73 01/09/19 23:29 66 01/09/19 21:00 Room Air 01/09/19 20:49 73 01/09/19 20:00 99.0 74 18 114/60 (78) 93 01/09/19 16:00 98.0 87 18 122/66 (84) 100 01/09/19 16:00 69 01/09/19 12:00 83 01/09/19 12:00 98.4 83 18 115/59 (77) 96 Intake and Output 01/09/19 01/10/19 19:00 07:00 Intake Total 845 ml 815 ml Output Total 170 ml Balance 845 ml 645 ml Intake Oral 720 ml IV Total 125 ml 815 ml Output Urine Total 170 ml # Voids 3 2 # Bowel Movements 2 1 General Appearance: no acute distress HEENT: normocephalic Respiratory/Chest: chest wall non-tender, lungs clear Cardiovascular: normal peripheral pulses, normal rate Abdomen: normal bowel sounds, soft, non tender Microbiology Date/Time Source Procedure Growth Status 01/07/19 18:40 Blood Blood Culture - Preliminary NO GROWTH AFTER 48 HOURS Resulted 2/24/19 18:25 Blood Blood Culture - Preliminary NO GROWTH AFTER 48 HOURS Resulted 01/07/19 18:35 Urine,Clean Catch Urine Culture - Final Klebsiella Pneumoniae Complete Laboratory Tests 01/10/19 07:37: Sodium Level 144, Potassium Level 3.5, Chloride Level 110H, Carbon Dioxide Level 22, Anion Gap 12, Blood Urea Nitrogen 9, Creatinine 0.9, Estimat Glomerular Filtration Rate , Glucose Level 169H, Calcium Level 9.1, Total Creatine Kinase 431H Current Medications Medications (Trade) Dose Ordered Sig/Selena Route PRN Reason Start Time Stop Time Status Last Admin Dose Admin Acetaminophen (Tylenol) 650 mg Q4H PRN ORAL Mild Pain (Pain Scale 1-3) 01/07/19 20:45 02/06/19 20:44 Allopurinol (Allopurinol) 300 mg DAILY ORAL 01/09/19 09:00 02/08/19 08:59 01/10/19 08:04 Aspirin (ASA) 81 mg DAILY ORAL 01/08/19 09:00 02/07/19 08:59 01/10/19 08:03 Ciprofloxacin (Cipro 500mg tab) 500 mg EVERY 12 HOURS ORAL 01/09/19 21:00 01/16/19 20:59 01/10/19 08:05 Dextrose (Dextrose 50%) 25 ml Q30M PRN IV Hypoglycemia 01/07/19 21:00 02/06/19 20:59 Dextrose (Dextrose 50%) 50 ml Q30M PRN IV Hypoglycemia 01/07/19 21:00 02/06/19 20:59 Diphenhydramine HCl (Benadryl) 25 mg Q6H PRN ORAL Itching/Pruritis 01/07/19 20:45 02/06/19 20:44 Enoxaparin Sodium (Lovenox) 40 mg DAILY SUBQ 01/08/19 09:00 02/07/19 08:59 01/10/19 08:06 EZETIMIBE (Zetia) 10 mg BEDTIME ORAL 01/08/19 00:00 02/07/19 00:00 01/09/19 21:27 Famotidine (Pepcid) 40 mg DAILY ORAL 01/08/19 09:00 02/07/19 08:59 01/10/19 08:03 Insulin Aspart (NovoLOG) BEFORE MEALS AND HS SUBQ 01/08/19 06:30 02/07/19 06:29 Levothyroxine Sodium (Synthroid) 150 mcg DAILY@0630 ORAL 01/08/19 06:30 02/07/19 06:29 01/10/19 06:19 Metformin HCl (Glucophage) 500 mg TIAC ORAL 01/08/19 06:30 02/07/19 06:29 01/10/19 06:19 Nebivolol (Bystolic) 10 mg DAILY ORAL 01/08/19 09:00 02/07/19 08:59 01/10/19 08:04 Sodium Chloride 1,000 ml @ 125 mls/hr Q8H IV 01/07/19 22:00 02/06/19 21:59 01/10/19 06:51 Doron Leroy MD Jan 10, 2019 09:35
--- NOTE | 2019-01-10 11:01 | NUR ---
CASE MANAGEMENT:REVIEW 01/10/19 SI: RHABDOMYOLYSIS. SEPSIS. UTI. AMS MRI BRAIN(-) 98.2 75 18 113/69 98% ON RA GLUCOSE+169 IS: CIPRO PO Q12 LOVENOX SQ QD ASA PO QD BYSTOLIC PO QD SYNTHROID PO QD ZETIA PO QHS : TELEMETRY STATUS DCP: FROM HOME
[2019-01-10 12:00] VITALS: BP 135/73
[2019-01-10 16:00] VITALS: BP 152/71
--- NOTE | 2019-01-10 16:18 | NUR ---
DISCHARGE PLANNING RECEIVED CALL FROM [facility] COMIC BOOK DESIGNER TIA PER TIA DR PAMLA HAS REQUESTED SNF PLACEMENT FOR THIS PATIENT TIA SAID SHE WILL MORE THAN LIKELY SECURE A BED [facility] AND ONCE SHE DOES SHE WILL CALL WITH THE INFORMATION [facility] NCM: ARMAAN T; [phone] F: [phone]
--- NOTE | 2019-01-10 16:49 | NUR ---
DISCHARGE PLANNING: NOTE F/U MADE WITH TIA. [facility]LEX[facility]OURE IS STILL WORKING ON OBTAINING A BED NUMBER. TELEPHONE NUMBER TO THE FLOOR WAS PROVIDED TO TIA FOR AFTER HOURS TRANSFER. [facility] NCM: ARMAAN T; [phone]
[2019-01-10 20:00] VITALS: BP 144/86
--- NOTE | 2019-01-10 20:10 | NUR ---
HAND-OFF: Report given to MAIRA Sibley.Endorsed plan of care.
--- NOTE | 2019-01-11 11:44 | Discharge Summary ---
Discharge Summary Discharge Summary _ DATE OF ADMISSION: 01/07/2019 DATE OF DISCHARGE: 01/10/2019 DISCHARGED BY: Dr. Doron Leroy BEAD FORMING MACHINE OPERATOR: Dr. Errol Mullen BRIEF HOSPITAL COURSE: Patient is a 78-year-old female, with well-known hypertension and diabetes mellitus, who had not been answering her phone for 2 days. Family members went over and called the paramedics. Per patient's recall, she was not feeling well and had not eaten for few days. She felt that she may have passed out. She was awakened by the paramedics and was brought to the emergency room. She has medical history significant for morbid obesity, diabetes mellitus, hypertension , hypothyroidism and hyperlipidemia. On evaluation at ED, blood work did not show any leukocytosis. Hemoglobin and hematocrit were stable. Potassium was 3.3. CK was elevated to 2435. Troponin was negative. AST 66, ALT 26. TSH 5.37. Urinalysis showed 2+ protein, 2+ ketones, 4+ blood, positive nitrite, 3+ leukocyte esterase, too many to count WBC. Urine toxicology was negative. EKG showed sinus tachycardia. Chest x- ray with mild left basal atelectasis. Head CT did not show any acute intracranial bleed, mass-effect or edema. There was mild atrophy of the brain. Disproportionate ventriculomegaly. Nonspecific white matter hypoattenuation probably due to chronic small vessel disease. She was admitted for evaluation of rhabdomyolysis, UTI, syncope, and hypokalemia. She was given IV hydration. Blood glucose was monitored. She was placed on insulin sliding scale. She was given potassium replacement. She was continued on Rocephin for UTI. TSH was elevated. She was continued on levothyroxine. She was given Lovenox for DVT prophylaxis. Total CK was down trending. Patient was more alert and awake. She was given PT mobility. MRI of the brain did not show any acute intracranial bleed, mass-effect or infarct. Urine culture showed growth of Klebsiella. Antibiotic was switched to p.o. ciprofloxacin. She was eventually discharged to a snf. FINAL DIAGNOSES: Rhabdomyolysis secondary to prolonged immobilization Hypokalemia Sepsis secondary to Klebsiella UTI Presyncopal to syncopal episode due to hyperglycemia, poorly controlled diabetes Hypertension Hypothyroidism Suspect toxic metabolic AMS/encephalopathy DISPOSITION: Patient was discharged to a SNF. I have been assigned to complete a discharge summary on this account, I was not involved with the patient's management. Cheyanne Durbin NP Jan 11, 2019 11:44
== END 2019-01-10 21:30 | DRG 871 ==
LOC: EDBD 18:16 → EMR 18:45 → EDBEDREQ 23:32 → 2E 23:56
DX: A41.9 Sepsis, unspecified organism (principal); G92 Toxic encephalopathy; N39.0 Urinary tract infection, site not specified; M62.82 Rhabdomyolysis; I10 Essential (primary) hypertension; E87.6 Hypokalemia; E11.65 Type 2 diabetes mellitus with hyperglycemia; E86.0 Dehydration; E78.5 Hyperlipidemia, unspecified; E03.9 Hypothyroidism, unspecified; R55 Syncope and collapse; Z68.37 Body mass index [BMI] 37.0-37.9, adult
CPT/HCPCS: 36415; 70450; 70551; 71045; 80048; 80053; 80307; 81003; 82550; 82962; 83605; 83880; 84443; 84484; 85025; 85610; 85730; 87040; 87086; 87181; 93005; 93970; 96361; 96365; 96368; 99285; J1815; J8499